=== PATIENT | male | born 1940 | race Caucasian/White ===

== ENCOUNTER → 2016-07-23 | Outpatient (CLI) | payer MEDICARE, OTHER ==
--- NOTE | 2016-07-23 17:57 | PCVCIMAG ---
APPROVED REPORT Study performed: 07/23/2016 10:48:56 EXAM: Comprehensive 2D, Doppler, and color-flow Echocardiogram Status: routine Other Information Study Quality: Adequate Indications Aortic Valve Disease Diabetes Hypertension/HDD Aortic Stenosis 2D Dimensions IVSd: 13.55 (7-11mm)LVOT Diam: 20.40 (18-24mm) LVDd: 55.35 mm PWd: 14.18 (7-11mm)Ascending Ao: 36.82 (22-36mm) LVDs: 31.78 (25-40mm) Left Atrium: 43.30 (27-40mm) Aortic Root: 34.31 mm LV Single Plane 4CH: 53.96 % LV Single Plane 2CH: 52.99 %Velazquez's LVEF: 53.47 % Biplane EF: 55.3 % Volumes Left Atrial Volume (Systole) Single Plane 4CH: 84.92 mLSingle Plane 2CH: 74.75 mL LA ESV Index: 39.00 mL/m2 Aortic Valve AoV Peak Kush.: 4.42 m/s AO Peak Gr.: 78.02 mmHgLVOT Max P.64 mmHg AO Mean Gr.: 42.20 mmHgLVOT Mean P.13 mmHg AO V2 Mean: 3.07 m/sLVOT Max V: 1.29 m/s AO V2 VTI: 127.62 cm COLLIN (VTI): 0.96 [id number] V1 VTI: 37.64 cm COLLIN Vmax: 0.95 cm2 AI Vmax: 3.99 m/s AI [place]atte: 3.11 m/s2 AI PHT: 373.81 ms Mitral Valve E/A Ratio: 1.0 MV Decel. Time: 384.18 ms MV E Max Kush.: 1.27 m/s MV A Kush.: 1.24 m/s MV PHT: 111.41 ms IVRT: 114.19 ms TDI E/Lateral E': 22.00E/Medial E': 35.00 Pulmonary Valve PV Peak Kush.: 0.82 m/sPV Peak Gr.: 2.67 mmHg Tricuspid Valve TR Peak Kush.: 2.25 m/s TR Peak Gr.: 20.16 mmHg PA Pressure: 27.00 mmHg Left Ventricle The left ventricle is normal size. There is normal LV segmental wall motion. Mild to moderate concentric left ventricular hypertrophy. Left ventricular systolic function is normal. The left ventricular ejection fraction is within the normal range. LVEF is 50-55%. Grade I - abnormal relaxation pattern. Right Ventricle The right ventricle is normal size. The right ventricular systolic function is normal. Atria Left atrium is moderately dilated. Right atrium is mildly dilated. Aortic Valve The aortic valve is severely calcified. The aortic valve is tri-cuspid. Moderate aortic regurgitation. There is no significant aortic valve stenosis. There is severe valvular aortic stenosis. Calculated aortic valve area is 1 cm2 with maximum pressure gradient of 78 mmHg and mean pressure gradient of 42 mmHg. Mitral Valve Mild mitral annular calcification. Mild mitral regurgitation. No evidence of mitral valve stenosis. Tricuspid Valve The tricuspid valve is normal in structure. There is trace tricuspid regurgitation. The right atrial pressure is estimated at 5 mmHg. Right ventricular systolic pressure is estimated at less than 30 mmHg. Pulmonic Valve The pulmonary valve is normal in structure. There is no pulmonic valvular regurgitation. Great Vessels The aortic root is normal in size. IVC is normal in size and collapses with >50% inspiration Pericardium There is no pericardial effusion. <Conclusion> The left ventricle is normal size. Mild to moderate concentric left ventricular hypertrophy. Left ventricular systolic function is normal. The left ventricular ejection fraction is within the normal range. Grade I - abnormal relaxation pattern. The right ventricle is normal size. Left atrium is moderately dilated. Right atrium is mildly dilated. Moderate aortic regurgitation. There is no significant aortic valve stenosis. There is severe valvular aortic stenosis. Calculated aortic valve area is 1 cm2 with maximum pressure gradient of 78 mmHg and mean pressure gradient of 42 mmHg. Mild mitral regurgitation. There is no pericardial effusion.
--- NOTE | 2016-07-24 08:18 | PCVCIMAG ---
EXAM: BILATERAL LOWER EXTREMITY ARTERIAL DUPLEX INDICATION: Peripheral Arterial Disease. Leg pain. FINDINGS: Right Leg: Satisfactory arterial waveforms in the common femoral and profunda femoral arteries. Good arterial waveforms throughout the superficial femoral artery and popliteal artery without flow-limiting stenosis. Occlusion throughout the midportion of the right posterior tibial artery. 90% stenosis in the proximal anterior tibial artery. The peroneal artery is patent. Left Leg: Good arterial waveforms in the common femoral and profunda femoral arteries. Good arterial waveforms throughout the superficial femoral artery and popliteal artery without significant stenosis. 70% stenosis mid/distal posterior tibial artery. Peroneal artery is patent. Occlusion throughout the proximal/mid anterior tibial artery. IMPRESSION: No significant stenosis in the superficial femoral or popliteal arteries bilaterally. 90% stenosis proximal right anterior tibial artery. Occlusion throughout the mid right posterior tibial artery. Occlusion proximal/mid left anterior tibial artery. 70% stenosis mid/distal left posterior tibial artery. LOC:[place] [id number]
== END | disposition home or self-care (01) ==
LOC: PCVCIMAG 10:09
PROVIDERS: ATTEND Internal Medicine Cardiovascular Disease
DX: I70.213 Atherosclerosis of native arteries of extremities with intermittent claudication, bilateral legs (principal); I35.0 Nonrheumatic aortic (valve) stenosis; I25.10 Atherosclerotic heart disease of native coronary artery without angina pectoris; I10 Essential (primary) hypertension; M19.90 Unspecified osteoarthritis, unspecified site; E78.00 Pure hypercholesterolemia, unspecified; E11.9 Type 2 diabetes mellitus without complications
CPT/HCPCS: 80061; 93005; 93306; 93925; G0463

== ENCOUNTER → 2017-04-22 | Outpatient (CLI) | payer MEDICARE, OTHER | END | disposition home or self-care (01) | LOC: PCVCCLINIC 10:13 | DX: I25.10 Atherosclerotic heart disease of native coronary artery without angina pectoris (principal); I10 Essential (primary) hypertension; I08.0 Rheumatic disorders of both mitral and aortic valves; E78.00 Pure hypercholesterolemia, unspecified; E11.9 Type 2 diabetes mellitus without complications; M54.42 Lumbago with sciatica, left side; R94.31 Abnormal electrocardiogram [ECG] [EKG]; M54.41 Lumbago with sciatica, right side; Z87.891 Personal history of nicotine dependence; Z79.899 Other long term (current) drug therapy; Z79.82 Long term (current) use of aspirin | CPT/HCPCS: 80061; 93005; G0463 ==

== ENCOUNTER → 2017-10-21 | Outpatient (CLI) | payer MEDICARE, OTHER ==
--- NOTE | 2017-10-21 16:56 | PCVCIMAG ---
APPROVED REPORT Study performed: 10/21/2017 10:25:15 EXAM: Comprehensive 2D, Doppler, and color-flow Echocardiogram Patient Location: Echo lab Status: routine BSA: 2.24 HR: 49 bpmBP: 124/54 mmHg Rhythm: Bradycardia Other Information Study Quality: Adequate Indications CAD Hypertension/HDD severe aortic stenosis 2D Dimensions LVEF(%): 55.56 (>50%) IVSd: 12.31 (7-11mm)LVOT Diam: 21.06 (18-24mm) LVDd: 55.49 mm PWd: 13.22 (7-11mm)Ascending Ao: 34.92 (22-36mm) LVDs: 39.24 (25-40mm) Left Atrium: 46.38 (27-40mm) Aortic Root: 35.24 mm LV Single Plane 4CH: 50.19 % LV Single Plane 2CH: 56.28 %Velazquez's LVEF: 53.24 % Biplane EF: 52.7 % Volumes Left Atrial Volume (Systole) Single Plane 4CH: 79.86 mLSingle Plane 2CH: 72.68 mL LA ESV Index: 38.00 mL/m2 Aortic Valve AoV Peak Kush.: 4.85 m/s AO Peak Gr.: 94.17 mmHgLVOT Max P.47 mmHg AO Mean Gr.: 46.18 mmHgLVOT Mean P.37 mmHg AO V2 Mean: 3.24 m/sLVOT Max V: 1.06 m/s AO V2 VTI: 145.14 cm COLLIN (VTI): 0.78 [id number] V1 VTI: 32.73 cm COLLIN Vmax: 0.76 cm2 AI Vmax: 3.97 m/s AI Tensas: 3.57 m/s2 AI PHT: 322.63 ms Mitral Valve E/A Ratio: 1.3 MV Decel. Time: 282.92 ms MV E Max Kush.: 1.32 m/s MV A Kush.: 1.01 m/s MV PHT: 82.05 ms IVRT: 124.57 ms Pulmonary Valve PV Peak Kush.: 0.81 m/sPV Peak Gr.: 2.60 mmHg Pulmonary Vein P Vein S: 0.47 m/sP Vein A: 0.31 m/s P Vein D: 0.70 m/sP Vein A Dur.: 173.0 msec P Vein S/D Ratio: 0.67 Tricuspid Valve TR Peak Kush.: 2.38 m/s TR Peak Gr.: 22.68 mmHg Left Ventricle The left ventricle is normal size. There is normal LV segmental wall motion. Mild concentric left ventricular hypertrophy. The left ventricular systolic function is within lower limits of normal. LVEF is 50-55%. Grade II - pseudonormal filling dynamics. Right Ventricle The right ventricle is normal size. The right ventricular systolic function is normal. Atria Left atrium is mildly dilated. The right atrium size is normal. Aortic Valve The aortic valve is severely calcified. Moderate aortic regurgitation. There is severe valvular aortic stenosis, however with minimal progression since echocardiogram in 2016. Calculated aortic valve area is .8 cm2 with maximum pressure gradient of 94 mmHg and mean pressure gradient of 46 mmHg. Mitral Valve The mitral valve is normal in structure. Mild mitral regurgitation. No evidence of mitral valve stenosis. Tricuspid Valve The tricuspid valve is normal in structure. Mild tricuspid regurgitation with PAP of 30 mmHg. Pulmonic Valve The pulmonary valve is normal in structure. Trace pulmonic regurgitation. Great Vessels The aortic root is normal in size. IVC is normal in size and collapses with >50% inspiration Pericardium There is no pericardial effusion. There is no pleural effusion. <Conclusion> The left ventricle is normal size. The left ventricular systolic function is within lower limits of normal. LVEF is 50-55%. Grade II - pseudonormal filling dynamics. The right ventricle is normal size. Left atrium is mildly dilated. The aortic valve is severely calcified. Moderate aortic regurgitation. There is severe valvular aortic stenosis, however with minimal progression since echocardiogram in 2016. Calculated aortic valve area is .8 cm2 with maximum pressure gradient of 94 mmHg and mean pressure gradient of 46 mmHg. Mild mitral regurgitation. Mild tricuspid regurgitation with PAP of 30 mmHg. The aortic root is normal in size. There is no pericardial effusion.
== END | disposition home or self-care (01) ==
LOC: PCVCIMAG 13:13
PROVIDERS: ATTEND Internal Medicine Cardiovascular Disease
DX: I08.3 Combined rheumatic disorders of mitral, aortic and tricuspid valves (principal); I25.10 Atherosclerotic heart disease of native coronary artery without angina pectoris; I73.9 Peripheral vascular disease, unspecified; E78.00 Pure hypercholesterolemia, unspecified; I10 Essential (primary) hypertension; R42 Dizziness and giddiness; E11.9 Type 2 diabetes mellitus without complications; Z87.891 Personal history of nicotine dependence; Z79.82 Long term (current) use of aspirin; Z79.84 Long term (current) use of oral hypoglycemic drugs
CPT/HCPCS: 80061; 93005; 93306; G0463

== ENCOUNTER → 2017-10-21 | Outpatient (CLI) | payer MEDICARE, OTHER | END | disposition home or self-care (01) | LOC: PCVCCLINIC 13:42 | PROVIDERS: ATTEND Internal Medicine Cardiovascular Disease | DX: I25.10 Atherosclerotic heart disease of native coronary artery without angina pectoris (principal); I73.9 Peripheral vascular disease, unspecified; E78.00 Pure hypercholesterolemia, unspecified; R42 Dizziness and giddiness; I10 Essential (primary) hypertension; I35.0 Nonrheumatic aortic (valve) stenosis; Z87.891 Personal history of nicotine dependence; Z79.84 Long term (current) use of oral hypoglycemic drugs; Z79.899 Other long term (current) drug therapy | CPT/HCPCS: 80061; 93005; G0463 ==

== ENCOUNTER → 2018-05-20 | Outpatient (CLI) | payer MEDICARE, OTHER ==
--- NOTE | 2018-05-20 16:24 | PCVCIMAG ---
EXAM: BILATERAL LOWER EXTREMITY ARTERIAL DUPLEX INDICATION: Peripheral Arterial Disease. Leg pain. FINDINGS: Right Leg: Common femoral and profunda femoral arteries are patent. Superficial femoral and popliteal arteries are patent. Occlusion of the mid posterior tibial artery. The anterior tibial artery appears patent. The distal peroneal artery is occluded. Left Leg: Common femoral and profunda femoral arteries are patent. The superficial femoral and popliteal arteries are patent. 70% stenosis mid [place] posterior tibial artery. The anterior tibial and peroneal arteries are patent. IMPRESSION: Occlusion mid right posterior tibial artery. Probable occlusion distal right peroneal artery. 70% stenosis mid [place] left posterior tibial artery. LOC:[id number]
== END | disposition home or self-care (01) ==
LOC: PCVCIMAG 13:26
PROVIDERS: ATTEND Internal Medicine Cardiovascular Disease
DX: I73.9 Peripheral vascular disease, unspecified (principal)
CPT/HCPCS: 93925

== ENCOUNTER → 2019-01-27 | Outpatient (CLI) | payer OTHER ==
--- NOTE | 2019-01-27 12:34 | PCVCIMAG ---
EXAM: AORTOILIAC DUPLEX INDICATION: Peripheral arterial disease FINDINGS: AORTA: Suprarenal aorta measures maximum diameter of 2.6 cm. There is not a fusiform infrarenal aortic aneurysm. The infrarenal aorta measures maximum diameter of 2.6 cm. No aortic stenosis. RIGHT COMMON ILIAC ARTERY: Maximum diameter is 1.2 cm. No significant stenosis. RIGHT EXTERNAL ILIAC ARTERY: No significant stenosis. LEFT COMMON ILIAC ARTERY: Maximum diameter is 1.3 cm. No significant stenosis. LEFT EXTERNAL ILIAC ARTERY: No significant stenosis. IMPRESSION: No abdominal aortic aneurysm. No aortoiliac stenosis seen. LOC:[id number]
== END | disposition home or self-care (01) ==
LOC: PCVCIMAG 11:48
PROVIDERS: ATTEND Internal Medicine Cardiovascular Disease
DX: E11.51 Type 2 diabetes mellitus with diabetic peripheral angiopathy without gangrene (principal); I08.0 Rheumatic disorders of both mitral and aortic valves; M79.604 Pain in right leg; M79.605 Pain in left leg; E78.00 Pure hypercholesterolemia, unspecified; I25.10 Atherosclerotic heart disease of native coronary artery without angina pectoris; I10 Essential (primary) hypertension; Z86.79 Personal history of other diseases of the circulatory system; Z88.8 Allergy status to other drugs, medicaments and biological substances; Z87.891 Personal history of nicotine dependence
CPT/HCPCS: 93978